=== PATIENT | male | born 1930 | race Caucasian/White ===

== ENCOUNTER 2017-06-15 16:56 | Emergency (ER) | payer MEDICARE, OTHER ==
[~2017-06-15] VITALS: Ht 172.7 cm; Wt 73.5 kg
[~2017-06-15 16:56] MED LIST: FERROUS SULFAT325 MG PO; FOLIC ACID1 MG; FUROSEMIDE20 MG; HUMALOG100 UNIT/1 SUB-Q; IMDUR30 MG PO; JANUVIA100 MG PO; LANTUS100 UNITS/ SUB-Q; LISINOPRIL-HCT1 EACH PO; MACULAR VITAMI1 EACH PO; MAGNESIUM OXID400 MG PO; MELOXICAM15 MG; METOPROLOL SUCC50 MG PO; OXYBUTYNIN CHLOR5 MG PO; POTASSIUM CHLO10 MEQ; PRADAXA150 MG; SYNTHROID137 MCG PO
[2017-06-15] MEDS ORDERED: ROSUVASTATIN CA10 MG PO (17:39)
[2017-06-15] MEDS ORDERED: KLOR-CON 1010 MEQ PO (17:40)
[2017-06-15] MEDS ORDERED: LASIX20 MG PO (17:43)
[2017-06-15] MEDS ORDERED: METOPROLOL TAR100 MG PO (17:43)
[2017-06-15] MEDS ORDERED: BREEZE 21 EACH MISC (17:46)
[2017-06-15] MEDS ORDERED: ELIQUIS2.5 MG PO (17:47)
[2017-06-15] MEDS ORDERED: NITROSTAT0.4 MG SL (17:48)
--- NOTE | 2017-06-15 21:57 | EKG ---
[facility] [address] [facility] [place] [address] Signed Atrial-paced rhythm with prolonged AV conduction Left axis deviation Left bundle branch block Abnormal ECG No previous ECGs available Confirmed by SEBAS LANTIGUA MD ([id number]) on 06/15/2017 9:57:48 PM Electronically Signed By: SEBAS LANTIGUA MD 06/15/17 [id number] PATIENT NAME: MARRY MERCADO Electrocardiogram DATE OF : [birth year] PHYSICIAN: SEBAS LANTIGUA MD REPORT #: [id number] REPORT IS CONFIDENTIAL AND NOT TO BE RELEASED WITHOUT AUTHORIZATION
== END 2017-06-15 18:35 | disposition home or self-care (01) ==
LOC: ED 16:56
DX: R07.9 Chest pain, unspecified (principal); I10 Essential (primary) hypertension; E11.9 Type 2 diabetes mellitus without complications; E03.9 Hypothyroidism, unspecified; Z87.891 Personal history of nicotine dependence; Z85.46 Personal history of malignant neoplasm of prostate; Z95.0 Presence of cardiac pacemaker; Z88.8 Allergy status to other drugs, medicaments and biological substances; Z79.899 Other long term (current) drug therapy; Z79.4 Long term (current) use of insulin
CPT/HCPCS: 71010; 80053; 84484; 85025; 85610; 93005; 93010; 99284

== ENCOUNTER 2018-04-29 10:25 | Emergency (ER) | payer MEDICARE, OTHER ==
[~2018-04-29] VITALS: Ht 172.7 cm; Wt 73.5 kg
--- OUTSIDE RECORDS SUMMARY | ~2018-04-29 | XMS | Encounter Summary ---
Demographics + + + | Address | [address] | | | [place] [address] | + + + | Home Phone | | + + + | Preferred Language | Unknown | + + + | Marital Status | | + + + | Amish Affiliation | 1041 | + + + | Race | Unknown | + + + | Ethnic Group | Unknown | + + + Author + + + | Author | [facility] | | | and [place] | + + + | Organization | [facility] | | | and [place] | + + + | Address | Unknown | + + + | Phone | Unavailable | + + + Support + + + + + | Name | Relationship | Address | Phone | + + + + + | Inga Reid | ECON | [address] | | | | | [place] | | | | | [address] | | + + + + + | Marisol Albarado | ECON | Unknown | | + + + + + Care Team Providers + +------+ + | Care [facility]ers[facility] Helper Name | Role | Phone | + +------+ + | Kadeem Talavera MD | PCP | | + +------+ + Reason for Visit + + + | Reason | Comments | + + + | Medication Refill | | + + + Encounter Details +--------+--------+ + + + | Date | Type | Department | Care Team | Description | +--------+--------+ + + + | 02/20/ | Refill | [facility] [place] | Sima Holder, | Medication Refill | | 2017 | | CARDIOLOGY [address] | [employer] [address] | | | | | [place], | [place], [place] | | | | | [place] [phone] | [address] | | | | | [phone] | | | +--------+--------+ + + + Social History + + + +--------+ + | Tobacco Use | Types | Packs/Day | Years | Date | | | | | Used | | + + + +--------+ + | Former Smoker | Cigarettes | 0.5 | 15 | Quit: 05/21/1967 | + + + +--------+ + + +---+---+---+ | Smokeless Tobacco: | | | | | Never Used | | | | + +---+---+---+ + + +---------+ + | Alcohol Use | Drinks/We | oz/Week | Comments | | | ek | | | + + +---------+ + | No | | | | + + +---------+ + + + + | Sex Assigned at | Date Recorded | | | | + + + | Not on file | | + + + as of this encounter Plan of Treatment +--------+---------+ + + + | Date | Type | Specialty | Care Team | Description | +--------+---------+ + + + | 04/11/ | Office | Cardiology | Sima Holder, | | | 2018 | Visit | | [address] | | | | | | [place] | | | | | | [id number] | | | | | | | | +--------+---------+ + + + as of this encounter Visit Diagnoses Not on filein this encounter"
--- OUTSIDE RECORDS SUMMARY | ~2018-04-29 | XMS | Encounter Summary ---
Demographics + + + | Address | [address] | | | [place] [address] | + + + | Home Phone | | + + + | Preferred Language | Unknown | + + + | Marital Status | | + + + | Latter-Day Affiliation | 1041 | + + + | Race | Unknown | + + + | Ethnic Group | Unknown | + + + Author + + + | Author | [facility] | | | and [place] | + + + | Organization | [facility] | | | and [place] | + + + | Address | Unknown | + + + | Phone | Unavailable | + + + Support + + + + + | Name | Relationship | Address | Phone | + + + + + | Inga Reid | ECON | [address] | | | | | [place] | | | | | [address] | | + + + + + | Marisol Albarado | ECON | Unknown | | + + + + + Care Team Providers + +------+ + | Care Home Planning Consultant Salesperson Name | Role | Phone | + +------+ + | Kadeem Talavera MD | PCP | | + +------+ + Reason for Referral Diagnostic/Screening (Routine) +--------+--------+ + + + + | Status | Reason | Specialty | Diagnoses / | Referred By | Referred To | | | | | Procedures | Contact | Contact | +--------+--------+ + + + + | Closed | | Radiology | Diagnoses | Hellberg, | [facility] | | | | | Sick sinus | Sima, INVESTIGATIVE WRITER | [address] | | | | | syndrome | [address] | [place], | | | | | (HCC) | [place] | [place] | | | | | Coronary | [place] | [address] | | | | | artery | [address] | Phone: | | | | | disease | Phone: | [phone] | | | | | involving | [phone] | Fax: | | | | | council | Fax: | [phone] | | | | | coronary | [phone] | | | | | | artery of | | | | | | | council heart | | | | | | | without | | | | | | | angina | | | | | | | pectoris | | | | | | | Paroxysmal | | | | | | | atrial | | | | | | | fibrillation | | | | | | | (HCC) | | | | | | | Hypertension | | | | | | | , essential | | | | | | | Chronic | | | | | | | diastolic | | | | | | | CHF | | | | | | | (congestive | | | | | | | heart | | | | | | | failure) | | | | | | | (HCC) | | | | | | | Dyslipidemia | | | | | | | Pacemaker | | | | | | | Pacemaker | | | | | | | reprogrammin | | | | | | | g/check | | | | | | | Mitral valve | | | | | | | | | | | | | | insufficienc | | | | | | | y, | | | | | | | unspecified | | | | | | | etiology | | | | | | | Procedures | | | | | | | ECHO | | | | | | | Complete CO | | | | | | | ECHO HEART | | | | | | | XTHORACIC,CO | | | | | | | MPLETE W | | | | | | | DOPPLER CO | | | | | | | ECHO HEART | | | | | | | XTHORACIC,CO | | | | | | | MPLETE, W/O | | | | | | | DOPPLER | | | +--------+--------+ + + + + Diagnostic/Screening (Routine) +--------+--------+ + + + + | Status | Reason | Specialty | Diagnoses / | Referred By | Referred To | | | | | Procedures | Contact | Contact | +--------+--------+ + + + + | Closed | | Radiology | Diagnoses | Hellberg, | [facility] | | | | | Sick sinus | Sima, INVESTIGATIVE WRITER | [address] | | | | | syndrome | [address] | [place], | | | | | ([facility]) | [place] | [place] | | | | | Coronary | [place], [place] | [address] | | | | | artery | [address] | Phone: | | | | | disease | Phone: | [phone] | | | | | involving | [phone] | Fax: | | | | | council | Fax: | [phone] | | | | | coronary | [phone] | | | | | | artery of | | | | | | | council heart | | | | | | | without | | | | | | | angina | | | | | | | pectoris | | | | | | | Paroxysmal | | | | | | | atrial | | | | | | | fibrillation | | | | | | | (HCC) | | | | | | | Hypertension | | | | | | | , essential | | | | | | | Chronic | | | | | | | diastolic | | | | | | | CHF | | | | | | | (congestive | | | | | | | heart | | | | | | | failure) | | | | | | | (HCC) | | | | | | | Dyslipidemia | | | | | | | Pacemaker | | | | | | | Pacemaker | | | | | | | reprogrammin | | | | | | | g/check | | | | | | | Mitral valve | | | | | | | | | | | | | | insufficienc | | | | | | | y, | | | | | | | unspecified | | | | | | | etiology | | | | | | | Procedures | | | | | | | ECHO | | | | | | | Complete CO | | | | | | | ECHO HEART | | | | | | | XTHORACIC,CO | | | | | | | MPLETE W | | | | | | | DOPPLER CO | | | | | | | ECHO HEART | | | | | | | XTHORACIC,CO | | | | | | | MPLETE, W/O | | | | | | | DOPPLER | | | +--------+--------+ + + + + Reason for Visit Diagnostic/Screening (Routine) +--------+--------+ + + + + | Status | Reason | Specialty | Diagnoses / | Referred By | Referred To | | | | | Procedures | Contact | Contact | +--------+--------+ + + + + | Closed | | Radiology | Diagnoses | [place]berg, | [facility] | | | | | Sick sinus | Sima, INVESTIGATIVE WRITER | [address] | | | | | syndrome | [address] | [place], | | | | | (HCC) | [place] | [place] | | | | | Coronary | [place] | [address] | | | | | artery | [address] | Phone: | | | | | disease | Phone: | [phone] | | | | | involving | [phone] | Fax: | | | | | council | Fax: | [phone] | | | | | coronary | [phone] | | | | | | artery of | | | | | | | council heart | | | | | | | without | | | | | | | angina | | | | | | | pectoris | | | | | | | Paroxysmal | | | | | | | atrial | | | | | | | fibrillation | | | | | | | (HCC) | | | | | | | Hypertension | | | | | | | , essential | | | | | | | Chronic | | | | | | | diastolic | | | | | | | CHF | | | | | | | (congestive | | | | | | | heart | | | | | | | failure) | | | | | | | (HCC) | | | | | | | Dyslipidemia | | | | | | | Pacemaker | | | | | | | Pacemaker | | | | | | | reprogrammin | | | | | | | g/check | | | | | | | Mitral valve | | | | | | | | | | | | | | insufficienc | | | | | | | y, | | | | | | | unspecified | | | | | | | etiology | | | | | | | Procedures | | | | | | | ECHO | | | | | | | Complete CO | | | | | | | ECHO HEART | | | | | | | XTHORACIC,CO | | | | | | | MPLETE W | | | | | | | DOPPLER CO | | | | | | | ECHO HEART | | | | | | | XTHORACIC,CO | | | | | | | MPLETE, W/O | | | | | | | DOPPLER | | | +--------+--------+ + + + + Encounter Details +--------+ + + + + | Date | Type | Department | Care Team | Description | +--------+ + + + + | 04/10/ | Hospital | [facility] | Sima Holder, | Sick sinus syndrome | | 2018 | Encounter | [facility] [address] | INVESTIGATIVE WRITER [address] | (HCC) with | | | | [address] [place] | [place] | symptomatic | | | | [place] [address] | [address] | bradycardia; | | | | [phone] | | Coronary artery | | | | | Adeline Hammond | disease involving | | | | | M, Technologist | council coronary | | | | | | artery of council | | | | | | heart without angina | | | | | | pectoris; | | | | | | Paroxysmal atrial | | | | | | fibrillation ([facility]); | | | | | | Hypertension, | | | | | | essential; Chronic | | | | | | diastolic CHF | | | | | | (congestive heart | | | | | | failure) ([facility]); | | | | | | Dyslipidemia; Dual | | | | | | Lead Medtronic | | | | | | Advisa MRI capable | | | | | | pacemaker 06/09/14 | | | | | | [place]; Pacemaker | | | | | | reprogramming/check | | | | | | DO NOT DELETE | +--------+ + + + + Social History + + [...] + + + as of this encounter Medications at Time of Discharge + + +--------+---------+ + + | Medication | Sig. | Disp. | Refills | Start | End Date | | | | | | Date | | + + +--------+---------+ + + | acetaminophen | Take 1-2 tablets by | | | 06/10/20 | | | (TYLENOL) 325 mg | mouth every 6 hours | | | 14 | | | tablet | as needed for Pain. | | | | | + + +--------+---------+ + + | JOYCE BREEZE 2 | | | 3 | 01/12/20 | | | TEST DISK | | | | 16 | | + + +--------+---------+ + + | Blood Glucose | by Does not apply | | | | | | Monitoring Suppl | route 3 times daily. | | | | | | (SELWYN NOE 2 | | | | | | | SYSTEM) | | | | | | + + +--------+---------+ + + | Cholecalciferol | Take 2,000 Units by | | | | | | (VITAMIN D3) 2000 | mouth Daily. | | | | | | UNITS CAPS | | | | | | + + +--------+---------+ + + | Cinnamon 500 MG | Take 1,000 mg by | | | | | | CAPS | mouth Daily. | | | | | + + +--------+---------+ + + | ELIQUIS 2.5 MG | Take one tablet by | 60 | 5 | 02/21/20 | | | tablet | mouth twice daily | tablet | | 18 | | + + +--------+---------+ + + | ferrous sulfate | Take 325 mg by mouth | | | | | | 325 mg tablet | daily (with | | | | | | | breakfast). | | | | | + + +--------+---------+ + + | folic acid 1 mg | Take 1 mg by mouth | | | | | | tablet | Daily. | | | | | + + +--------+---------+ + + | furosemide (LASIX) | Take 1 tablet by | | | 07/06/20 | | | 20 mg tablet | mouth Daily. | | | 17 | | + + +--------+---------+ + + | insulin glargine | Inject 30 Units | | | 06/03/20 | | | (LANTUS) 100 | under the skin | | | 14 | | | units/mL injection | Daily. Pharmacy | | | | | | | reported. | | | | | + + +--------+---------+ + + | insulin lispro | Per sliding scale | | 0 | 06/03/20 | | | (ANALILIA MCKEON) | per Dr. Moore: 3 | | | 14 | | | 100 units/mL | units before | | | | | | injection pen | breakfast and dinner | | | | | | | + sliding scale | | | | | | | with a maximum of 15 | | | | | | | units per day. | | | | | + + +--------+---------+ + + | isosorbide | Take 1 tablet by | 120 | 5 | 08/19/20 | | | dinitrate (ISORDIL) | mouth Daily as | tablet | | 16 | | | 30 MG tablet | needed. For SBP > | | | | | | | 200 mmHg | | | | | + + +--------+---------+ + + | levothyroxine | Take 125 mcg by | | 3 | 09/28/19 | | | (SYNTHROID, | mouth Daily. | | | 16 | | | LEVOTHROID) 125 mcg | | | | | | | tablet | | | | | | + + +--------+---------+ + + | | Take two tablets by | 180 | 1 | 01/04/20 | | | lisinopril-hydrochlo | mouth every day | tablet | | 18 | | | rothiazide | | | | | | | (PRINZIDE,ZESTORETIC | | | | | | | ) 20-12.5 MG per | | | | | | | tablet | | | | | | + + +--------+---------+ + + | magnesium oxide | Take 400 mg by mouth | | | | | | (MAG-OX) 400 mg | 2 times daily. | | | | | | tablet | | | | | | + + +--------+---------+ + + | metoprolol | TAKE ONE TABLET BY | 180 | 2 | 12/06/19 | | | tartrate (LOPRESSOR) | MOUTH TWICE DAILY | tablet | | 18 | | | 100 mg tablet | | | | | | + + +--------+---------+ + + | Multiple | Take by mouth | | | | | | Vitamins-Minerals | Daily. | | | | | | ([facility] | | | | | | | PO) | | | | | | + + +--------+---------+ + + | nitroglycerin | Place 0.4 mg under | | | | | | (NITROSTAT) 0.3 mg | the tongue every 5 | | | | | | SL tablet | minutes as needed. | | | | | + + +--------+---------+ + + | NOVOLOG FLEXPEN | Sliding scale | | | 02/27/20 | | | 100 UNIT/ML | | | | 18 | | | injection pen | | | | | | + + +--------+---------+ + + | [place]-3 Fatty | Take by mouth | | | | | | Acids (PRO NUTRIENTS | Daily. | | | | | | OMEGA 3) 332.5 MG | | | | | | | CPDR | | | | | | + + +--------+---------+ + + | oxybutynin | Take 5 mg by mouth 2 | | | | | | (DITROPAN XL) 5 mg | times daily. | | | | | | 24 hr tablet | | | | | | + + +--------+---------+ + + | potassium chloride | Take 1 tablet by | | | 07/06/20 | | | (ANTWANOR-CON) 10 mEq | mouth Daily. | | | 17 | | | CR tablet | | | | | | + + +--------+---------+ + + | PROAIR HFA 108 (90 | Take 2 puffs by | | | 07/09/20 | | | BASE) MCG/ACT | mouth as needed. | | | 14 | | | inhaler | | | | | | + + +--------+---------+ + + | sitagliptin | Take 50 mg by mouth | | | | | | (JANUVIA) 50 MG | Daily. | | | | | | tablet | | | | | | + + +--------+---------+ + + | triamcinolone | Apply as directed | | | 07/28/20 | | | (KENALOG) 0.1% cream | | | | 14 | | + + +--------+---------+ + + as of this encounter Plan of Treatment +--------+---------+ + + + | Date | Type | Specialty | Care Team | Description | +--------+---------+ + + + | 04/11/ | Office | Cardiology | Sima Holder, | | | 2018 | Visit | | [address] | | | | | | [place], [place] | | | | | | [address] | | | | | | | | +--------+---------+ + + + as of this encounter Procedures + +--------+ + + + | Procedure Name | Priori | Date/Time | Associated Diagnosis | Comments | | | ty | | | | + +--------+ + + + | ECHO COMPLETE | Routin | 04/10/2018 | Sick sinus | Results for this | | | e | 1417 PDT | syndrome (HCC) with | procedure are in the | | | | | symptomatic | results section. | | | | | bradycardia | | | | | | Coronary artery | | | | | | disease involving | | | | | | council coronary | | | | | | artery of council | | | | | | heart without angina | | | | | | pectoris | | | | | | Paroxysmal atrial | | | | | | fibrillation (HCC) | | | | | | Hypertension, | | | | | | essential Chronic | | | | | | diastolic CHF | | | | | | (congestive heart | | | | | | failure) (HCC) | | | | | | Dyslipidemia Dual | | | | | | Lead Medtronic | | | | | | Advisa MRI capable | | | | | | pacemaker 06/09/14 | | | | | | [place] Pacemaker | | | | | | reprogramming/check | | | | | | DO NOT DELETE | | | | | | Mitral valve | | | | | | insufficiency, | | | | | | unspecified etiology | | + +--------+ + + + in this encounter Results ECHO Complete (04/10/2018 1417) + +-------+ + + | Component | Value | Ref Range | Performed At | + +-------+ + + | LVEF-TTE | 60 | | [facility] | | TRANSTHORACIC ECHO | | | | + +-------+ + + + + ----+ | Narrative | Performed At | + + ----+ | Transthoracic | [facility] | | Echocardiography Report (TTE) Demographics Patient Name ROGELIO | | | MARRY Room Number ANAM Patient | | | Number [id number] Date of Study | | | 04/10/2018 Visit Number [id number] | | | Referring Physician | | | ANNETTE CALVERT Number Date of | | | 1930 Embossing Clerk MARY | | | BLANCA HOLGUIN Age 87 | | | year(s) Interpreting MAKENNA | | | G[place] | | | Careers Adviser Gender | | | Male Nurse | | | St | | | ress Dining Room Tables Set Up Attendant Procedure Type of Study TTE procedure: ECHO Complete. | | | Procedure dateDate: 04/10/2018Start: 01:15 PM Technical Quality: | | | Adequate visualizationStudy Location: Echo LabIndications: Mitral | | | Insufficiency 424.0/I34.0.Patient Status: RoutineHeight: 69 | | | inchesWeight: 167 poundsBSA: 1.91 m^2BMI: 24.66 kg/m^2Rhythm: Atrial | | | fibrillationHR: 62 bpm ConclusionsSummary1. Mild left atrial | | | dilatation.2. Normal left ventricular size with a moderate to severe | | | concentric leftventricular hypertrophy. Left ventricular systolic | | | function is preserved.LVEF is 60-65%.3. Mildly thickened and calcified | | | mitral valve with a trace mitral valveregurgitation.4. | | | Qxhy-ws-kwtzbbus mitral annular calcification.5. Mildly thickened and | | | calcified trileaflet aortic valve with adequateopening. There is | | | aortic valve sclerosis without significant aortic valvestenosis. There | | | is a trace aortic valve insufficiency.6. Mild tricuspid valve | | | regurgitation.7. Mild pulmonary hypertension with a peak systolic | | | pressure of 45-50 mmHg.8. Pacemaker lead in right ventricle.9. Dilated | | | IVC with a normal collapse suggesting mild fluid retention.10. When | | | compared to echocardiography on 02/19/15, concentric left | | | ventricularhypertrophy seems worsen. | | | Signature | | | | | | PM | | | -------- FindingsMitral ValveThickening and calcification of the | | | mitral valve leaflets.Mild mitral regurgitation.Mild mitral annular | | | calcification is present.Aortic ValveAortic valve appears | | | trileaflet.Diffuse thickening (sclerosis) of the aortic valve cusps | | | without reducedexcursion.Tricuspid ValveMild tricuspid regurgitation | | | suggestive of a mildly elevated right systolicpressure of 45-50 | | | mmHg.Pulmonic ValveNormal pulmonic valve structure and function. | | | Normal pulmonary valve andRVOT flow by color and Doppler flow | | | imaging.Left AtriumThe left atrium is mildly dilated.Left | | | VentricleNormal left ventricular cavity size.Moderate concentric left | | | ventricular hypertrophy.Ejection fraction is visually estimated at | | | 60-65%.Right AtriumNormal right atrial size.Right VentricleNormal | | | right ventricular size.Right ventricle global systolic function is | | | normal.TAPSE = 1.7 cm.Pacer Wire visualized in right | | | ventricle.Pericardial EffusionNo evidence of pericardial | | | effusion.Pleural EffusionNo evidence of pleural | | | effusion.MiscellaneousDilated IVC with normal collapse.Aortic root | | | dimension within normal limits. Valves Mitral Valve Peak E-Wave: | | | 0.86 m/s Peak A-Wave: 0.22 m/s Tissue Doppler Septal e' Velocity: | | | 0.04 m/s Septal E/e' Ratio:20.14 Aortic Valve Peak Velocity: 0.81 | | | m/s Area (continuity): 3.41 cm^2 Peak Gradient: | | | 2.61 mmHg Mean Gradient: 1.32 mmHg AI P1/2t: | | | 577.95 msec Tricuspid Valve TR Velocity: 2.91 m/s LVOT Peak | | | Velocity: 0.74 m/s LVOT Diameter: 2.15 cm Structures Left Atrium LA | | | A/P Dimension: 4.53 cm LA Volume: | | | 86.74 ml LA Vol/BSA Index: 45 mL/m^2 Left Ventricle Diastolic | | | Dimension: 2.85 cm Systolic Dimension: 2.1 cm Septum | | | Diastolic: 2.08 cm PW Diastolic: 1.53 cm EF Ygxowpkps23% EF | | | Calculated: 56.46% Miscellaneous Aorta Aortic Root: 3.81 cm | | | Ascending Aorta: 4.15 cm | | |Mild mitral annular calcification is present. | | |Aortic Valve | | |Aortic valve appears trileaflet. | | |Diffuse thickening (sclerosis) of the aortic valve cusps without reduced | | |excursion. | | |Tricuspid Valve | | |Mild tricuspid regurgitation suggestive of a mildly elevated right systolic | | |pressure of 45-50 mmHg. | | |Pulmonic Valve | | |Normal pulmonic valve structure and function. Normal pulmonary valve and | | |RVOT flow by color and Doppler flow imaging. | | |Left Atrium | | |The left atrium is mildly dilated. | | |Left Ventricle | | |Normal left ventricular cavity size. | | |Moderate concentric left ventricular hypertrophy. | | |Ejection fraction is visually estimated at 60-65%. | | |Right Atrium | | |Normal right atrial size. | | |Right Ventricle | | |Normal right ventricular size. | | |Right ventricle global systolic function is normal. | | |TAPSE = 1.7 cm. | | |Pacer Wire visualized in right ventricle. | | |Pericardial Effusion | | |No evidence of pericardial effusion. | | |Pleural Effusion | | |No evidence of pleural effusion. | | |Miscellaneous | | |Dilated IVC with normal collapse. | | |Aortic root dimension within normal limits. | | | | | |Valves | | | | | | Mitral Valve | | | | | | Peak E-Wave: 0.86 m/s | | | Peak A-Wave: 0.22 m/s | | | | | | Tissue Doppler | | | | | | Septal e' Velocity: 0.04 m/s | | | Septal E/e' Ratio:20.14 | | | | | | Aortic Valve | | | | | | Peak Velocity: 0.81 m/s Area (continuity): 3.41 cm^2 | | | Peak Gradient: 2.61 mmHg Mean Gradient: 1.32 mmHg | | | AI P1/2t: 577.95 msec | | | | | | Tricuspid Valve | | | | | | TR Velocity: 2.91 m/s | | | | | | LVOT | | | | | | Peak Velocity: 0.74 m/s | | | LVOT Diameter: 2.15 cm | | | | | |Structures | | | | | | Left Atrium | | | | | | LA A/P Dimension: 4.53 cm LA Volume: 86.74 ml | | | LA Vol/BSA Index: 45 mL/m^2 | | | | | | Left Ventricle | | | | | | Diastolic Dimension: 2.85 cm Systolic Dimension: 2.1 cm | | | Septum Diastolic: 2.08 cm | | | PW Diastolic: 1.53 cm | | | EF Coefhpzeo65% | | | EF Calculated: 56.46% | | | | | | Miscellaneous | | | | | | Aorta | | | | | | Aortic Root: 3.81 cm | | | Ascending Aorta: 4.15 cm | | | | | + + ----+ + + | Procedure Note | + + | Jose, Rad Results In - 04/10/2018 1507 PDT Transthoracic Echocardiography Report (TTE) | | | | Demographics | | | | Patient Name ROGELIO TUTTLE Room Number | | ANAM | | | | Patient Number [id number] Date of Study 04/10/2018 | | | | Visit Number [id number] | | | | Referring Physician ANNETTE CALVERT | | Number | | | | Date of 1930 Embossing Clerk MARY HOLGUIN | | | | Age 87 year(s) Interpreting MAKENNA THOMPSON, | | Careers Adviser | | | | Gender Male Nurse | | | | Stress Dining Room Tables Set Up Attendant | | | | Procedure | | | | Type of Study | | | | TTE procedure: ECHO Complete. | | | | Procedure date | | Date: 04/10/2018Start: 01:15 PM | | | | Technical Quality: Adequate visualizationStudy Location: Echo Lab | | Indications: Mitral Insufficiency 424.0/I34.0. | | Patient Status: Routine | | Height: 69 inchesWeight: 167 poundsBSA: 1.91 m^2BMI: 24.66 kg/m^2 | | Rhythm: Atrial fibrillationHR: 62 bpm | | | | Conclusions | | Summary | | 1. Mild left atrial dilatation. | | 2. Normal left ventricular size with a moderate to severe concentric left | | ventricular hypertrophy. Left ventricular systolic function is preserved. | | LVEF is 60-65%. | | 3. Mildly thickened and calcified mitral valve with a trace mitral valve | | regurgitation. | | 4. Ifve-ec-srncrtrg mitral annular calcification. | | 5. Mildly thickened and calcified trileaflet aortic valve with adequate | | opening. There is aortic valve sclerosis without significant aortic valve | | stenosis. There is a trace aortic valve insufficiency. | | 6. Mild tricuspid valve regurgitation. | | 7. Mild pulmonary hypertension with a peak systolic pressure of 45-50 mmHg. | | 8. Pacemaker lead in right ventricle. | | 9. Dilated IVC with a normal collapse suggesting mild fluid retention. | | 10. When compared to echocardiography on 02/19/15, concentric left ventricular | | hypertrophy seems worsen. | | | | Signature | | | | Electronically signed by MAKENNA THOMPSON MD(Interpreting physician) on | | 04/10/2018 03:07 PM | | | | | | Findings | | Mitral Valve | | Thickening and calcification of the mitral valve leaflets. | | Mild mitral regurgitation. | | Mild mitral annular calcification is present. | | Aortic Valve | | Aortic valve appears trileaflet. | | Diffuse thickening (sclerosis) of the aortic valve cusps without reduced | | excursion. | | Tricuspid Valve | | Mild tricuspid regurgitation suggestive of a mildly elevated right systolic | | pressure of 45-50 mmHg. | | Pulmonic Valve | | Normal pulmonic valve structure and function. Normal pulmonary valve and | | RVOT flow by color and Doppler flow imaging. | | Left Atrium | | The left atrium is mildly dilated. | | Left Ventricle | | Normal left ventricular cavity size. | | Moderate concentric left ventricular hypertrophy. | | Ejection fraction is visually estimated at 60-65%. | | Right Atrium | | Normal right atrial size. | | Right Ventricle | | Normal right ventricular size. | | Right ventricle global systolic function is normal. | | TAPSE = 1.7 cm. | | Pacer Wire visualized in right ventricle. | | Pericardial Effusion | | No evidence of pericardial effusion. | | Pleural Effusion | | No evidence of pleural effusion. | | Miscellaneous | | Dilated IVC with normal collapse. | | Aortic root dimension within normal limits. | | | | Valves | | | | Mitral Valve | | | | Peak E-Wave: 0.86 m/s | | Peak A-Wave: 0.22 m/s | | | | Tissue Doppler | | | | Septal e' Velocity: 0.04 m/s | | Septal E/e' Ratio:20.14 | | | | Aortic Valve | | | | Peak Velocity: 0.81 m/s Area (continuity): 3.41 cm^2 | | Peak Gradient: 2.61 mmHg Mean Gradient: 1.32 mmHg | | AI P1/2t: 577.95 msec | | | | Tricuspid Valve | | | | TR Velocity: 2.91 m/s | | | | LVOT | | | | Peak Velocity: 0.74 m/s | | LVOT Diameter: 2.15 cm | | | | Structures | | | | Left Atrium | | | | LA A/P Dimension: 4.53 cm LA Volume: 86.74 ml | | LA Vol/BSA Index: 45 mL/m^2 | | | | Left Ventricle | | | | Diastolic Dimension: 2.85 cm Systolic Dimension: 2.1 cm | | Septum Diastolic: 2.08 cm | | PW Diastolic: 1.53 cm | | EF Hcxomzcor26% | | EF Calculated: 56.46% | | | | Miscellaneous | | | | Aorta | | | | Aortic Root: 3.81 cm | | Ascending Aorta: 4.15 cm | + + + +---------+ + + | Performing | Address | City/State/Zipcode | Phone Number | | Organization | | | | + +---------+ + + | [facility] | | | | + +---------+ + + in this encounter Visit Diagnoses + + | Diagnosis | + + | Sick sinus syndrome (HCC) with symptomatic bradycardia | + + | Sinoatrial node dysfunction | + + | 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
--- OUTSIDE RECORDS SUMMARY | ~2018-04-29 | XMS | Encounter Summary ---
Demographics + + + | Address | [address] | | | [place] [address] | + + + | Home Phone | | + + + | Preferred Language | Unknown | + + + | Marital Status | | + + + | Baptism Affiliation | [id number] | + + + | Race | Unknown | + + + | Ethnic Group | Unknown | + + + Author + + + | Author | [facility] | | | and [place] | + + + | Organization | [facility] | | | and [place] | [...] | [place] | | | | | [id number] | | + + + + + | Marisol Albarado | ECON | Unknown | | + + + + + Care Team Providers + +------+ + | Care Plate Conditioner Name | Role | Phone | + +------+ + | Kadeem Talavera MD | PCP | | + +------+ + Reason for Visit + + + | Reason | Comments | + + + | Follow-up | | + + + | Atrial Fibrillation | | + + + | Bradycardia | | + + + | Hyperlipidemia | | + + + | Hypertension | | + + + | Congestive Heart | | | Failure | | + + + | Device Check | | | (In-office) | | + + + Encounter Details +--------+---------+ + + + | Date | Type | Department | Care Team | Description | +--------+---------+ + + + | 04/10/ | Office | [facility] | Sima Holder, | Sick sinus syndrome | | 2018 | Visit | CARDIOLOGY [address] | RN RELIEF CHARGE [address] | ([facility]) with | | | | [address] [place], | [place], [place] | symptomatic | | | | [place] [address] | [id number] | bradycardia (Primary | | | | [phone] | | Dx); Coronary | | | | | | artery disease | | | | | | involving prairie band | | | | | | coronary artery of | | | | | | prairie band heart without | | | | | | angina pectoris; | | | | | | Paroxysmal atrial | | | | | | fibrillation (HCC); | | | | | | Chronic diastolic | | | | | | CHF (congestive | | | | | | heart failure) | | | | | | (HCC); Hypertension, | | | | | | essential; | | | | | | Dyslipidemia; Dual | | | | | | Lead Medtronic | | | | | | Advisa MRI capable | | | | | | pacemaker 06/09/14 | | | | | | [place]; Pacemaker | | | | | | reprogramming/check | | | | | | DO NOT DELETE | +--------+---------+ + + + Social History + + [...] + + + as of this encounter Last Filed Vital Signs + + + + | Vital Sign | Reading | Time Taken | + + + + | Blood Pressure | 130/80 | 04/10/20181451 PDT | + + + + | Pulse | 66 | 04/10/20181451 PDT | + + + + | Temperature | - | - | + + + + | Respiratory Rate | 12 | 04/10/20181451 PDT | + + + + | Oxygen Saturation | - | - | + + + + | Inhaled Oxygen | - | - | | Concentration | | | + + + + | Weight | 76.2 kg (167 lb 15.9 | 04/10/2018 1452 PDT | | | oz) | | + + + + | Height | 172.7 cm (5' 8") | 04/10/2018 1452 PDT | + + + + | Body Mass Index | 25.54 | 04/10/2018 1452 PDT | + + + + in this encounter Instructions Patient Instructions - Sima Holder ARNP - 04/10/2018 1500 PDT 1. You might try switching your magnesium oxide over to magnesium citrate as this is more h elpful with constipation, also it absorbs better. 2. Take the lab slips to go have your blood drawn in May, be fasting for 9 to 12 hour s, with nothing to eat or drink except water and your medications. 3. Continue your CareLink checks every 3 months. 4. Return in 1 year for office visit and device interrogation, or sooner with concerns.in t his encounter Progress Notes Sima Holder ARNP - 04/10/2018 1500 PDTFormatting of this note may be different from the original. PATIENT NAME: Jourdan Reid : 1930: AGE: 87 y.o. PRIMARY CARE: Kadeem Talavera MD CC: OUTPATIENT FOLLOW UP VISIT Date of Service: 04/10/2018 HISTORY OF PRESENT ILLNESS: Jourdan Reid is a 87 y.o. male with a history of non critical coronary artery diseas e, permanent atrial fibrillation, symptomatic bradycardia status post Medtronic dual-chamber permanent pacemaker implantation 06/09/14, hypothyroidism, hypertension obstructive sleep ap michael, not tolerate CPAP mask. He is being seen today for follow up and device interrogation. He was last seen 07/06/17 at which time he had no changes in his medical regimen. Since th at time, he reports he has been feeling pretty well. He has had a fair energy level. He tri es to stay active. 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 He will still drive around and check the yard for clover and let the [employer] company know i f things need to be sprayed. He has not had any chest pain or discomfort at rest or with ex ertion. He has had shortness of breath with Laying down flat first thing at night for just a minute or 2 and then it will resolve and his breathing will return to normal. He never w akes up feeling like he has to sit up in the middle the night. Have any shortness of breath with exertion during the day doing any of his activities.l He has not had any lightheadedn ess or dizziness. He has not noticed palpitations. He has not had leg swelling. He sleeps on 2 pillows at night, which is his norm, and does not wake up at night feeling short of br eath. He sleeps with oxygen in place nightly with 2 liters per minute by nasal cannula. MEDICAL, SURGICAL, AND PERSONAL HISTORY Past Medical, Surgical, Family, and Social History are reviewed in EPIC. CURRENT PROBLEMS Patient Active Problem List Diagnosis Paroxysmal atrial fibrillation Sick sinus syndrome with symptomatic bradycardia Fatigue Diabetes Cancer SOB (shortness of breath) LBBB (left bundle branch block) Chest pain Hypertension, essential Dual Lead Medtronic Advisa MRI capable pacemaker 06/09/14 [place] Coronary artery disease involving prairie band coronary artery of prairie band heart without angina pectoris Pacemaker reprogramming/check DO NOT DELETE Dyslipidemia Chronic diastolic CHF (congestive heart failure) CURRENT MEDICATIONS Current Outpatient Prescriptions Medication Sig Dispense Refill acetaminophen (TYLENOL) 325 mg tablet Take 1-2 tablets by mouth every 6 hours as needed for Pain. JOYCE BREEZE 2 TEST DISK 3 Blood Glucose Monitoring Suppl (EcometricaEZE 2 SYSTEM) by Does not apply route 3 karen es daily. Cholecalciferol (VITAMIN D3) 2000 UNITS CAPS Take 2,000 Units by mouth Daily. Cinnamon 500 MG CAPS Take 1,000 mg by mouth Daily. ELIQUIS 2.5 MG tablet Take one tablet by mouth twice daily 60 tablet 5 ferrous sulfate 325 mg tablet Take 325 mg by mouth daily (with breakfast). folic acid 1 mg tablet Take 1 mg by mouth Daily. furosemide (LASIX) 20 mg tablet Take 1 tablet by mouth Daily. insulin glargine (LANTUS) 100 units/mL injection Inject 30 Units under the skin Daily. Pharmacy reported. insulin lispro (HUMALOG KWIKPEN) 100 units/mL injection pen Per sliding scale per Dr. Ogden unlap: 3 units before breakfast and dinner + sliding scale with a maximum of 15 units per da y. 0 isosorbide dinitrate (ISORDIL) 30 MG tablet Take 1 tablet by mouth Daily as needed. For SBP > 200 mmHg 120 tablet 5 levothyroxine (SYNTHROID, LEVOTHROID) 125 mcg tablet Take 125 mcg by mouth Daily. 3 lisinopril-hydrochlorothiazide (PRINZIDE,ZESTORETIC) 20-12.5 MG per tablet Take two tab lets by mouth every day 180 tablet 1 magnesium oxide (MAG-OX) 400 mg tablet Take 400 mg by mouth 2 times daily. metoprolol tartrate (LOPRESSOR) 100 mg tablet TAKE ONE TABLET BY MOUTH TWICE DAILY 180 tablet 2 Multiple Vitamins-Minerals ([facility] PO) Take by mouth Daily. nitroglycerin (NITROSTAT) 0.[address] 0.4 mg under the tongue every 5 minute s as needed. [place]-3 Fatty Acids (PRO NUTRIENTS OMEGA 3) 332.5 MG CPDR Take by mouth Daily. oxybutynin (DITROPAN XL) 5 mg 24 hr tablet Take 5 mg by mouth 2 times daily. potassium chloride (KLOR-CON) 10 mEq CR tablet Take 1 tablet by mouth Daily. PROAIR HFA 108 (90 BASE) MCG/ACT inhaler Take 2 puffs by mouth as needed. rosuvastatin (CRESTOR) 10 mg tablet Take 1 tablet by mouth nightly. 30 tablet 5 sitagliptin (JANUVIA) 50 MG tablet Take 50 mg by mouth Daily. triamcinolone (KENALOG) 0.1% cream Apply as directed No current facility-administered medications for this visit. ALLERGIES Allergies Allergen Reactions Cephalosporins Other (See Comments) Patient doesn't recall Prednisone Other (See Comments) Patient doesn't recall Ranitidine Hcl Other (See Comments) Patient doesn't recall Sulfamethoxazole W/Trimethoprim (Co-Trimoxazole) Other (See Comments) Patient doesn't recall ROS Review of Systems Constitutional: Positive for malaise/fatigue. Respiratory: Positive for shortness of breath (when he first lays down at night, lasting a few minutes). Cardiovascular: Negative for chest pain, palpitations, orthopnea (oxygen worn at night on 2 liters. He uses 2 pillows for both comfort and shortness of breath), claudication and leg s welling. Neurological: Negative for dizziness and weakness. OBJECTIVE: PHYSICAL EXAM BP 130/80 | Pulse 66 Comment: regular | Resp 12 | Ht 1.727 m (5' 8") | Wt 76.2 kg (167 l b 15.9 oz) | BMI 25.54 kg/m Physical Exam Constitutional: He is oriented to person, place, and time. He appears well-developed and we ll-nourished. No distress. Elderly, male individual without acute distress, accompanied by Neck: Normal carotid pulses and no JVD present. Carotid bruit is not present. Cardiovascular: Normal rate, regular rhythm, S1 normal, S2 normal and intact distal pulses. PMI is not displaced. Exam reveals no gallop, no S3, no S4 and no friction rub. Murmur heard. Holosystolic murmur is present with a grade of 1/6 Pulses: Carotid pulses are 2+ on the right side, and 2+ on the left side. Posterior tibial pulses are 1+ on the right side, and 1+ on the left side. Pulmonary/Chest: Effort normal. No accessory muscle usage. No respiratory distress. He has decreased breath sounds. He has no wheezes. He has no rhonchi. He has no rales. Abdominal: Normal appearance, normal aorta and bowel sounds are normal. He exhibits no abdo flakito bruit. There is no hepatosplenomegaly. There is no tenderness. Musculoskeletal: He exhibits no edema. Neurological: He is alert and oriented to person, place, and time. Gait (does not use phillip tive devices) abnormal. Skin: Skin is warm, dry and intact. Psychiatric: He has a normal mood and affect. His mood appears not anxious. Cognition and m elizabteh are impaired. He does not exhibit a depressed mood. ECG: I personally independently reviewed ECG tracing during this visit (interpreted and geovanna led by another provider): Results for orders placed or performed in visit on 07/06/17 ECG 12 lead Result Value Ref Range INTERPRETATION TEXT dual-chamber pacing device, AV sequential pacing rhythm Left axis deviation Left bundle branch block Abnormal ECG When compared with ECG of 23-JUN-2016 13:03, Electronic atrial pacemaker has replaced Electronic ventricular pacemaker Confirmed by ANDREW THOMPSON MDTYSON ([id number]) on 07/07/2017 4:44:58 PM Which is compared to today's ECG 04/10/2018: Atrial fibrillation with RV paced response wi th a rate of 63 beats per minute. LAB RESULTS reviewed during visit today primarily from [facility]: LIPID Lab Results Component Value Date CHOLHDL 3.0 06/28/2016 LDLEX 76 06/29/2017 HDLEX 41.6 06/29/2017 TRIGEX 85 06/29/2017 CHOLEX 135 06/29/2017 CHEMISTRY Lab Results Component Value Date GLU 102 06/11/2015 GLUEX 203 (A) 06/15/2017 NA 142 06/11/2015 NAEX 138 06/15/2017 K 3.4 (L) 06/11/2015 KEX 3.5 (A) 06/15/2017 CL 105 06/11/2015 CLEX 99 06/15/2017 CO2 29 06/11/2015 CO2EX 31 06/15/2017 CALCIUM 9.1 06/11/2015 ALKPHOS 49 06/11/2015 AST 22 06/11/2015 ASTEX 18 06/15/2017 ALT 18 06/11/2015 ALTEX 18 06/15/2017 BILITOT 0.7 06/11/2015 CREA 1.09 06/11/2015 BUN 17 06/11/2015 EGFREX 45 06/15/2017 CREEX 1.47 (A) 06/15/2017 HEMATOLOGY Lab Results Component Value Date WBC 5.3 06/11/2015 WBCEX 7.0 06/15/2017 HGB 13.8 06/11/2015 HGBEX 14.9 06/15/2017 HCT 41.4 06/11/2015 HCTEX 43.3 06/15/2017 PLT 153 06/11/2015 PLTEX 215 06/15/2017 Lab Results Component Value Date TSHEX 2.06 06/28/2016 BNPEX 306 (A) 02/18/2015 I reviewed records from PCP for office visit on 02/01/18 regarding multiple medical problems including CAD and atrial fibrillation and hypertension at which time His medications were c ontinued including metoprolol, lisinopril/hydrochlorothiazide and Eliquis. IMAGING- I reviewed reports from [facility]: Echocardiogram 04/10/18 showing Mild left atrial dilatation. Normal left ventricular size w ith a moderate to severe concentric left ventricular hypertrophy. Left ventricular systolic function is preserved. LVEF is 60-65%. Mildly thickened and calcified mitral valve with a tr raul mitral valve regurgitation, auxa-[id number] mitral annular calcification, mildly thicke nancy and calcified trileaflet aortic valve with adequate opening. 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 There is a trace aortic valve insufficiency, mild tricuspid valve regurgitation, mild pulmonary hypertension with a peak systolic pressu re of 45-50 mmHg. Pacemaker lead in right ventricle. Dilated IVC with a normal collapse sugg esting mild fluid retention. When compared to echocardiography on 02/19/15, concentric left ve ntricular hypertrophy seems worsen. DEVICE INTERROGATION Device interrogation is ordered and performed during this visit. Refer to scanned P[employer]art documentation and device PDF in [employer] for interrogation (with programming changes) performed during visit today. Events: 2 AT/AF episodes accounting for 64%. Current episode on going since 11/05/17 showing atrial flutter with paced ventricular response. Heart rate histogram shows good distribution. Atrial pacing 35.6 %, Ventricular pacing 68.3 %. There is a normal and stable device function. Estimated remaining battery longevity is 3.5 years. Current underlying rhythm: atrial flutter with ventricular rate 36 beats per minute Above data and testing is reviewed this visit; testing below is historical data unless othe rwise specified. ASSESSMENT: 1. Paroxysmal atrial fibrillation/atrial flutter: A. He was last seen by Dr. Crawford, a laborer cook house in [facility] for approximately a year and a half to treat his atrial fibrillation. He was put on th e Dabigatran to minimize the risk of stroke. B. Regadenoson SPECT MPI of 05/07/13 showed small fixed defect of an teroseptal wall. C. Echocardiogram on 05/13/[address] Crawford showed normal left ventr icular size, severe concentric left ventricular hypertrophy, LVEF 54%, mid interventricular septum hypokinesis, suspecting elevated left atrial pressure, normal right-sided pressure. D. He had a GI bleed 08/2014 with hemoglobin 9.1 at which point h is meloxicam and Pradaxa were stopped. He has a referral to see cable mechanic for col onoscopy but is not yet scheduled. E. Echocardiogram 02/19/15 Top normal left atrial size. Normal left ventricular size with mild concentric left ventricular hypertrophy. Left ventricular systol ic and is low normal. LVEF is 50-55%. Mildly thickened and calcified trileaflet aortic sj ve with adequate opening. There is a mild aortic valve insufficiency. Mildly thickened and calcified mitral valve with a trace mitral valve regurgitation. Mild mitral annular calci fication, mild tricuspid valve regurgitation, mild pulmonary hypertension with a peak systol ic pressure of 45-50 mmHg. Normal IVC with less than 50% respiratory collapse. F.His risks for stroke include: Hx of HTN (1), Age >/= 75 y.o.(2) and Vascular disease (1). His [id number] score is 4, which gives an estimated 4.0% risk o f stroke per year in atrial fibrillation. His bleeding risks include: bleeding history/anem ia (1) and >64 YO (1) . His HASBLED score is 2-3, which confers an intermediate risk (4.1-5 .8%) risk of bleed per year. He is on Eliquis to minimize risk of stroke. Today, 04/10/2018, he is in atrial fibrillation 64% of the time with ongoing episode since 10/2017. He is completely unaware of his atrial fibrillation, and his rate is well controlled on metoprolol. 2. Non critical coronary artery disease: A. Persantine nuclear medicine stress test 09/26/13 Persantine EK G is non diagnostic due to the abnormal underlying EKG. Abnormal Persantine Sestamibi myocar dial perfusion study with a medium-sized, reversible defect of a moderate severity in the pr oximal inferior, mid inferior, distal inferior and apex. This suggests a medium-sized myocar dial ischemia of a right coronary territories.Normal left ventricular size and wall thicknes s. Preserved left ventricular systolic function. LVEF by gated SPECT 57 %. B. Left heart catheterization 10/02/14 shows mild to moderate gerardo nary artery disease with mild diffuse disease of LAD, mild diffuse disease of left circumfle x, moderate diffuse plaquing at the proximal and midportion of the RCA, normal left ventricu lar systolic function with LVEF 60%. Risk factor modification recommended. C. Echocardiogram 04/10/18 showing Mild left atrial dilatation. N ormal left ventricular size with a moderate to severe concentric left ventricular hypertroph y. Left ventricular systolic function is preserved. LVEF is 60-65%. Mildly thickened and derrick cified mitral valve with a trace mitral valve regurgitation, fihd-ut-njfubale mitral annular calcification, mildly thickened and calcified trileaflet aortic valve with adequate opening . There is aortic valve sclerosis without significant aortic valve stenosis. There is a trac e aortic valve insufficiency, mild tricuspid valve regurgitation, mild pulmonary hypertensio n with a peak systolic pressure of 45-50 mmHg. Pacemaker lead in right ventricle. Dilated IV C with a normal collapse suggesting mild fluid retention. When compared to echocardiography on 02/19/15, concentric left ventricular hypertrophy seems worsen. D. Today, 04/10/2018, he denies chest pain. 3. Tachycardia/bradycardia syndrome: A. Holter monitor from 06/01 from [facility] in [place], [place] shows significant bradycardia, according to the patient's. Hard copy is not av ailable.. B. Status post Medtronic Advisa (MRI friendly) dual-chamber permane nt pacemaker placed by Dr. Siddiqi on 06/09/2014. C.He has quarterly CareLink remote monitoring. Today, 04/10/2018, his device interrogation shows normal and stable device function. 4. Chronic diastolic congestive heart failure, heart failure with preserved ejection fract ion: A. Echocardiogram 04/10/18 showing Mild left atrial dilatation. Normal left rosalba tricular size with a moderate to severe concentric left ventricular hypertrophy. Left ventri cular systolic function is preserved. LVEF is 60-65%. Mildly thickened and calcified mitral valve with a trace mitral valve regurgitation, nevd-im-nfddftmr mitral annular calcification , mildly thickened and calcified trileaflet aortic valve with adequate opening. There is aor tic valve sclerosis without significant aortic valve stenosis. There is a trace aortic valve insufficiency, mild tricuspid valve regurgitation, mild pulmonary hypertension with a peak systolic pressure of 45-50 mmHg. Pacemaker lead in right ventricle. Dilated IVC with a maddi l collapse suggesting mild fluid retention. When compared to echocardiography on 02/19/15, con centric left ventricular hypertrophy seems worsen. B. Today, 04/10/2018, his echocardiogram is reviewed with him. He is euvolemic. There are n o signs or symptoms of overt congestive heart failure, and his physical exam shows no signif icant fluid retention. He is in class II of the [place] Heart Association functional class . 5. Hypertension, essential. A. Today, 04/10/2018, his blood pressure is well controlled. 4. Dyslipidemia: A. Today, 04/10/2018, he remains on rosuvastatin 10 mg. He is due fo r fasting lipid panel in May. 5. GI bleed with anemia 08/2014. Not otherwise addressed today 04/10/2018. 6. Hypothyroidism. Not otherwise addressed today 04/10/2018. 7. Diabetes, type II- uncomplicated, controlled. Not otherwise addressed today 04/10/2018. 8. Hypoxemia: Not otherwise addressed today 04/10/2018. A. This appears to be secondary to his congestive heart failure p rimarily. He continues to need oxygen nocturnally due to this. He is consistent with using nocturnal oxygen by nasal canula at 2 liters per minute. PLAN: 1. He is given lab slip to take to [facility] in May to have fasting lipid panel, CMP and CBC. He will be called or sent a letter with results. 2. He will continue with his Quarterly CareLink remote device monitoring. 3. He will follow up in 1 year for office visit and device interrogation, or sooner with co ncersilver. Nola Brock MA-R, am acting as a scribe on behalf of, and in the presence of ABDIEL Porter. - MELODIE Hartley 04/10/2018 15:21 I, ABDIEL Porter, personally performed the services described in this documentation, as scribed in my presence and it is both accurate and complete. ABDIEL Quevedo 2017 15:36 Portions of this chart may have been created with [employer] voice recognition software. Occasi onal wrong-word or sound-alike substitutions may have occurred due to the inherent powell itations of voice recognition software. Please read the chart carefully and recognize, using context, where these substitutions have occurred. in this encounter Plan of Treatment +--------+---------+ + + + | Date | Type | Specialty | Care Team | Description | +--------+---------+ + + + | 04/11/ | Office | Cardiology | Sima Holder, | | | 2018 | Visit | | ABDIEL [address] | | | | | | [place], [place] | | | | | | [phone] | | | | | | | | +--------+---------+ + + + + +--------+ + + | Name | Priori | Associated Diagnoses | Order Schedule | | | ty | | | + +--------+ + + | Device Interrogation | Routin | Sick sinus | 10 Occurrences | | | e | syndrome (HCC) with | starting 04/10/2018 | | | | symptomatic | until 04/10/2019, 1 | | | | bradycardia Dual | completed | | | | Lead Medtronic | | | | | Advisa MRI capable | | | | | pacemaker 06/09/14 | | | | | [place] Pacemaker | | | | | reprogramming/check | | | | | DO NOT DELETE | | + +--------+ + + | Lipid Panel | Routin | Coronary artery | Expected: 04/10/2018 | | | e | disease involving | (Approximate), | | | | prairie band coronary | Expires: 04/10/2019 | | | | artery of prairie band | | | | | heart without angina | | | | | pectoris Sick | | | | | sinus syndrome (HCC) | | | | | with symptomatic | | | | | bradycardia | | | | | Paroxysmal atrial | | | | | fibrillation (HCC) | | | | | Chronic diastolic | | | | | CHF (congestive | | | | | heart failure) (HCC) | | | | | Hypertension, | | | | | essential | | | | | Dyslipidemia Dual | | | | | Lead Medtronic | | | | | Advisa MRI capable | | | | | pacemaker 06/09/14 | | | | | [place] Pacemaker | | | | | reprogramming/check | | | | | DO NOT DELETE | | + +--------+ + + | Comprehensive Metabolic Panel | Routin | Coronary artery | Expected: 04/10/2018 | | | e | disease involving | (Approximate), | | | | prairie band coronary | Expires: 04/10/2019 | | | | artery of prairie band | | | | | heart without angina | | | | | pectoris Sick | | | | | sinus syndrome (HCC) | | | | | with symptomatic | | | | | bradycardia | | | | | Paroxysmal atrial | | | | | fibrillation (HCC) | | | | | Chronic diastolic | | | | | CHF (congestive | | | | | heart failure) (HCC) | | | | | Hypertension, | | | | | essential | | | | | Dyslipidemia Dual | | | | | Lead Medtronic | | | | | Advisa MRI capable | | | | | pacemaker 06/09/14 | | | | | [place] Pacemaker | | | | | reprogramming/check | | | | | DO NOT DELETE | | + +--------+ + + | CBC no Differential | Routin | Coronary artery | Expected: 04/10/2018 | | | e | disease involving | (Approximate), | | | | prairie band coronary | Expires: 04/10/2019 | | | | artery of prairie band | | | | | heart without angina | | | | | pectoris Sick | | | | | sinus syndrome (HCC) | | | | | with symptomatic | | | | | bradycardia | | | | | Paroxysmal atrial | | | | | fibrillation (HCC) | | | | | Chronic diastolic | | | | | CHF (congestive | | | | | heart failure) (HCC) | | | | | Hypertension, | | | | | essential | | | | | Dyslipidemia Dual | | | | | Lead Medtronic | | | | | Advisa MRI capable | | | | | pacemaker 06/09/14 | | | | | [place] Pacemaker | | | | | reprogramming/check | | | | | DO NOT DELETE | | + +--------+ + + as of this encounter Procedures + +--------+ + + + | Procedure Name | Priori | Date/Time | Associated Diagnosis | Comments | | | ty | | | | + +--------+ + + + | ECG 12 LEAD | Routin | 04/10/2018 | Coronary artery | Results for this | | | e | 1507 PDT | disease involving | procedure are in the | | | | | prairie band coronary | results section. | | | | | artery of prairie band | | | | | | heart without angina | | | | | | pectoris | | + +--------+ + + + | DEVICE INTERROGATION | Routin | 04/10/2018 | Sick sinus | Results for this | | | e | 0000 PDT | syndrome (HCC) with | procedure are in the | | | | | symptomatic | results section. | | | | | bradycardia Dual | | | | | | Lead Medtronic | | | | | | Advisa MRI capable | | | | | | pacemaker 06/09/14 | | | | | | [place] Pacemaker | | | | | | reprogramming/check | | | | | | DO NOT DELETE | | + +--------+ + + + in this encounter Results ECG 12 lead (04/10/2018 1507) + + + + + | Component | Value | Ref Range | Performed At | + + + + + | VENTRICULAR RATE EKG | 63 | BPM | [facility] | + + + + + | ATRIAL RATE | 340 | BPM | [facility] | + + + + + | QRS DURATION | 170 | ms | [facility] | + + + + + | Q-T INTERVAL | 488 | ms | [facility] | + + + + + | Q-T INTERVAL | 499 | ms | [facility] | | (CORRECTED) | | | | + + + + + | QRS AXIS | -11 | degrees | [facility] | + + + + + | T AXIS | 160 | degrees | [facility] | + + + + + | INTERPRETATION TEXT | Ventricular-paced rhythm | | [facility] | | | ,a fibAbnormal ECGWhen | | | | | compared with ECG of | | | | | -JUN-2017 | | | | | 13:29,Previous ECG has | | | | | undetermined rhythm, | | | | | needs reviewConfirmed by | | | | | GABINO FLORES, MAKENNA | | | | | ([id number]) on 04/10/2018 | | | | | 4:56:58 PM | | | + + + + + + + + | Narrative | Performed At | + + + | | | + + + + +---------+ + + | Performing | Address | City/State/Zipcode | Phone Number | | Organization | | | | + +---------+ + + | [facility] | | | | + +---------+ + + Device Interrogation (04/10/2018) + + + | Narrative | Performed At | + + + | Sima Holder, | [facility] | | RN RELIEF CHARGE 04/10/2018 16:01 PATIENT NAME: Jourdan Solis | | | [place] : 1930: AGE: 87 y.o. Device | | | In-office Evaluation Report 04/10/2018 Reason for evaluation: | | | routineIndication for device: ICD-10-CM ICD-9-CM 1. 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 Coronary | | | artery disease involving prairie band coronary artery of prairie band heart | | | without angina pectoris I25.10 414.01 ECG 12 lead Lipid Panel | | | Comprehensive Metabolic Panel CBC no Differential 3. | | | Paroxysmal atrial fibrillation (HCC) I48.0 427.31 Lipid Panel | | | Comprehensive Metabolic Panel CBC no Differential 4. Chronic | | | diastolic CHF (congestive heart failure) ([facility]) I50.32 428.32 Lipid | | | Panel 428.0 Comprehensive Metabolic Panel CBC no Differential | | | 5. Hypertension, essential I10 401.9 Lipid Panel Comprehensive | | | Metabolic Panel CBC no Differential 6. Dyslipidemia E78.5 272.4 | | | Lipid Panel Comprehensive Metabolic Panel CBC no | | | Differential 7. Dual Lead Medtronic Advisa MRI capable pacemaker | | | 06[facility]09/14 [facility] Z[facility]0 V45.01 Device Interrogation Device | | | Interrogation Lipid Panel Comprehensive Metabolic Panel | | | CBC no Differential 8. Pacemaker reprogramming/check DO NOT DELETE | | | Z45.018 V53.31 Device Interrogation Device Interrogation | | | Lipid Panel Comprehensive Metabolic Panel CBC no | | | Differential Patient was seated and device was interrogated (with | | | programming changes made). Test was performed and interpreted by | | | me. Device parameters, battery status, percentages pacing and | | | significant arrhythmias were reviewed. Heart rate histograms were | | | assessed for adequate heart rate response and any alerts reviewed. | | | Appropriate lead impedance testing was performed. Pacing impedances | | | were reviewed for any significant changes. Sensing tests were | | | performed by decreasing LRL. Adequacy of pacing thresholds were tested | | | by increasing LRL for each lead and recorded for loss of capture. | | | Final outputs were assessed for adequate safety margins. Summary of | | | findings:Events: 2 AT/AF episodes accounting for 64%. Current episode | | | on going since 11/05/17 showing atrial flutter with paced ventricular | | | response.Heart rate histogram shows good distribution. Atrial pacing | | | 35.6 %, Ventricular pacing 68.3 %.There is a normal and stable device | | | function.Estimated remaining battery longevity is 3.5 years.Current | | | underlying rhythm: atrial flutter with ventricular rate 36 beats per | | | minute.Please see the scanned [facility] report and device PDF for | | | further details. | | | Comprehensive Metabolic Panel | | | CBC no Differential | | |8. Pacemaker reprogramming/check DO NOT DELETE Z45.018 V53.31 | | |Device Interrogation | | | Device Interrogation | | | Lipid Panel | | | Comprehensive Metabolic Panel | | | CBC no Differential | | | | | | | | |Patient was seated and device was interrogated (with programming | | |changes made). Test was performed and interpreted by me. Device | | |parameters, battery status, percentages pacing and significant | | |arrhythmias were reviewed. Heart rate histograms were assessed | | |for adequate heart rate response and any alerts reviewed. | | |Appropriate lead impedance testing was performed. Pacing | | |impedances were reviewed for any significant changes. Sensing | | |tests were performed by decreasing LRL. Adequacy of pacing | | |thresholds were tested by increasing LRL for each lead and | | |recorded for loss of capture. Final outputs were assessed for | | |adequate safety margins. | | | | | |Summary of findings: | | |Events: 2 AT/AF episodes accounting for 64%. Current episode on | | |going since 11/05/17 showing atrial flutter with paced ventricular | | |response. | | |Heart rate histogram shows good distribution. Atrial pacing 35.6 | | |%, Ventricular pacing 68.3 %. | | |There is a normal and stable device function. | | |Estimated remaining battery longevity is 3.5 years. | | |Current underlying rhythm: atrial flutter with ventricular rate | | |36 beats per minute. | | |Please see the scanned [facility] report and device PDF for further | | |details. | | + + + + + | Procedure Note | + + | Sima Holder ARNP - 04/10/2018 1500 PDT Formatting of this note may be different | | from the original.PATIENT NAME: Jourdan Reid : 1930: AGE: 87 | | y.o.Device In-office Evaluation Report04/10/2018 Reason for evaluation: routineIndication | | for device: ICD-10-CM ICD-9-CM 1. Sick sinus syndrome (HCC) with symptomatic | | bradycardia I49.5 427.81 Device Interrogation Device Interrogation Lipid Panel | | Comprehensive Metabolic Panel CBC no Differential 2. Coronary artery disease | | involving prairie band coronary artery of prairie band heart without angina pectoris I25.10 414.01 | | ECG 12 lead Lipid Panel Comprehensive Metabolic Panel CBC no Differential 3. | | Paroxysmal atrial fibrillation (HCC) I48.0 427.31 Lipid Panel Comprehensive Metabolic | | Panel CBC no Differential 4. Chronic diastolic CHF (congestive heart failure) (HCC) | | I50.32 428.32 Lipid Panel 428.0 Comprehensive Metabolic Panel CBC no Differential | | 5. Hypertension, essential I10 401.9 Lipid Panel Comprehensive Metabolic Panel CBC | | no Differential 6. Dyslipidemia E78.5 272.4 Lipid Panel Comprehensive Metabolic | | Panel CBC no Differential 7. Dual Lead Medtronic Advisa MRI capable pacemaker 06/09/14 | | [place] Z95.0 V45.01 Device Interrogation Device Interrogation Lipid Panel | | Comprehensive Metabolic Panel CBC no Differential 8. Pacemaker reprogramming/check DO | | NOT DELETE Z45.018 V53.31 Device Interrogation Device Interrogation Lipid Panel | | Comprehensive Metabolic Panel CBC no Differential Patient was seated and device was | | interrogated (with programming changes made). Test was performed and interpreted by | | me. Device parameters, battery status, percentages pacing and significant arrhythmias | | were reviewed. Heart rate histograms were assessed for adequate heart rate response and | | any alerts reviewed. Appropriate lead impedance testing was performed. Pacing impedances | | were reviewed for any significant changes. Sensing tests were performed by decreasing | | LRL. Adequacy of pacing thresholds were tested by increasing LRL for each lead and | | recorded for loss of capture. Final outputs were assessed for adequate safety | | margins.Summary of findings:Events: 2 AT/AF episodes accounting for 64%. Current episode | | on going since 11/05/17 showing atrial flutter with paced ventricular response.Heart | | rate histogram shows good distribution. Atrial pacing 35.6 %, Ventricular pacing 68.3 | | %.There is a normal and stable device function.Estimated remaining battery longevity is | | 3.5 years.Current underlying rhythm: atrial flutter with ventricular rate 36 beats per | | minute.Please see the scanned [facility] report and device PDF for further details. | | CBC no Differential | |6. Dyslipidemia E78.5 272.4 Lipid Panel | | Comprehensive Metabolic Panel | | CBC no Differential | |7. Dual Lead Medtronic Advisa MRI capable pacemaker 06/09/14 [facility] Z95.0 V45.01 Device I nterrogation | | Device Interrogation | | Lipid Panel | | Comprehensive Metabolic Panel | | CBC no Differential | |8. Pacemaker reprogramming/check DO NOT DELETE Z45.018 V53.31 Device Interrogation | | Device Interrogation | | Lipid Panel | | Comprehensive Metabolic Panel | | CBC no Differential | | | | | |Patient was seated and device was interrogated (with programming changes made). Test was p erformed and interpreted by me. Device parameters, battery status, percentages pacing and si gnificant arrhythmias were | |reviewed. Heart rate histograms were assessed for adequate heart rate response and any aler ts reviewed. Appropriate lead impedance testing was performed. Pacing impedances were review ed for any significant changes. | |Sensing tests were performed by decreasing LRL. Adequacy of pacing thresholds were tested b y increasing LRL for each lead and recorded for loss of capture. Final outputs were assessed for adequate safety margins. | | | |Summary of findings: | |Events: 2 AT/AF episodes accounting for 64%. Current episode on going since 11/05/17 showing atrial flutter with paced ventricular response. | |Heart rate histogram shows good distribution. Atrial pacing 35.6 %, Ventricular pacing 68.3 %. | |There is a normal and stable device function. | |Estimated remaining battery longevity is 3.5 years. | |Current underlying rhythm: atrial flutter with ventricular rate 36 beats per minute. | |Please see the scanned [facility] report and device PDF for further details. 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
--- OUTSIDE RECORDS SUMMARY | ~2018-04-29 | XMS | Clinical Summary ---
Demographics + + + | Address | [address] | | | [place] [address] | + + + | Home Phone | | + + + | Preferred Language | Unknown | + + + | Marital Status | | + + + | Church Affiliation | Unknown | + + + | Race | Unknown | + + + | Ethnic Group | Unknown | + + + Author + + + | Author | [facility] | + + + | Organization | [facility] | + + + | Address | Unknown | + + + | Phone | Unavailable | + + + Support + + + + + | Name | Relationship | Address | Phone | + + + + + | Jourdan Mercado | ECON | [address] | | | | | [place] | | | | | [phone] | | + + + + + | Rhett Mercado | ECON | Unknown | | + + + + + Care Team Providers + +------+ + | Care Share Holder Name | Role | Phone | + +------+ + | Evelin Leyva PA-C | PP | | + +------+ + Allergies + + + + + + | Active Allergy | Reactions | Severity | Noted | Comments | | | | | Date | | + + + + + + | Cephalosporins | Nausea and Vomiting, | Medium | 09/30/19 | unknown reaction | | | Other (See | | 12 | | | | Comments) | | | | + + + + + + | Corticosteroids | Other (See Comments) | Medium | 09/30/19 | unknown | | | | | 12 | | + + + + + + | Metoprolol | Other (See Comments) | Medium | 09/30/19 | unknown | | | | | 12 | | + + + + + + | Ranitidine | Other (See Comments) | Medium | 09/30/19 | unknown | | | | | 12 | | + + + + + + | Sulfa Antibiotics | Other (See Comments) | Medium | 09/30/19 | unknown | | | | | 12 | | + + + + + + Current Medications + + +-------+---------+------+------+-------+ | Prescription | Sig. | Disp. | Refills | Star | End | Statu | | | | | | t | Date | s | | | | | | Date | | | + + +-------+---------+------+------+-------+ | aspirin 81 MG | Take 81 mg by mouth | | | | | Activ | | tablet | daily. | | | | | e | + + +-------+---------+------+------+-------+ | diltiazem | Take 240 mg by mouth | | | | | Activ | | (CARDIZEM CD) 240 MG | daily. | | | | | e | | 24 hr capsule | | | | | | | + + +-------+---------+------+------+-------+ | liothyronine | Take 25 mcg by mouth | | | | | Activ | | (CYTOMEL) 25 MCG | daily. | | | | | e | | tablet | | | | | | | + + +-------+---------+------+------+-------+ | insulin lispro | Inject 30 Units into | | | | | Activ | | (HUMALOG) 100 | the skin 3 (three) | | | | | e | | UNIT/ML injection | times daily before | | | | | | | | meals. Sliding scale | | | | | | | | | | | | | | + + +-------+---------+------+------+-------+ | potassium chloride | Take 20 mEq by mouth | | | | | Activ | | (KLOR-CON) 10 MEQ | daily. | | | | | e | | CR tablet | | | | | | | + + +-------+---------+------+------+-------+ | levothyroxine | Take 100 mcg by | | | | | Activ | | (SYNTHROID, | mouth daily. | | | | | e | | LEVOTHROID) 100 MCG | | | | | | | | tablet | | | | | | | + + +-------+---------+------+------+-------+ | | Take 1 tablet by | | | | | Activ | | lisinopril-hydrochlo | mouth daily. | | | | | e | | rothiazide | | | | | | | | (PRINZIDE,ZESTORETIC | | | | | | | | ) 20-12.5 MG per | | | | | | | | tablet | | | | | | | + + +-------+---------+------+------+-------+ | metformin | Take 850 mg by mouth | | | | | Activ | | (GLUCOPHAGE) 850 MG | 3 (three) times | | | | | e | | tablet | daily. | | | | | | + + +-------+---------+------+------+-------+ | oxybutynin | Take 5 mg by mouth 2 | | | | | Activ | | (DITROPAN) 5 MG | (two) times daily. | | | | | e | | tablet | | | | | | | + + +-------+---------+------+------+-------+ | simvastatin | Take 40 mg by mouth | | | | | Activ | | (ZOCOR) 40 MG tablet | nightly. | | | | | e | + + +-------+---------+------+------+-------+ Active Problems Not on file Family History + + +------+ + | Medical History | Relation | Name | Comments | + + +------+ + | Heart disease | Brother | | | + + +------+ + | Diabetes type II | Mother | | | + + +------+ + + +------+ + + | Relation | Name | Status | Comments | + +------+ + + | Brother | | | | + +------+ + + | Mother | | | | + +------+ + + Social History + +-------+ +--------+------+ | Tobacco Use | Types | Packs/Day | Years | Date | | | | | Used | | + +-------+ +--------+------+ | Former Smoker | | | | | + +-------+ +--------+------+ + + +---------+ + | Alcohol Use | Drinks/We | oz/Week | Comments | | | ek | | | + + +---------+ + | Yes | | | rarely | + + +---------+ + + + + | Sex Assigned at | Date Recorded | | | | + + + | Not on file | | + + + Last Filed Vital Signs + + + + | Vital Sign | Reading | Time Taken | + + + + | Blood Pressure | 142/75 | 09/30/2011 9:30 PM PST | + + + + | Pulse | 82 | 09/30/2011 9:30 PM PST | + + + + | Temperature | 36.4 C (97.5 F) | 09/30/2011 9:30 PM PST | + + + + | Respiratory Rate | 18 | 09/30/2011 9:30 PM PST | + + + + | Oxygen Saturation | 96% | 09/30/2011 9:30 PM PST | + + + + | Inhaled Oxygen | - | - | | Concentration | | | + + + + | Weight | 67.1 kg (148 lb) | 09/30/2011 12:31 PM PST | + + + + | Height | 175.3 cm (5' 9") | 09/30/2011 12:31 PM PST | + + + + | Body Mass Index | 21.86 | 09/30/2011 12:31 PM PST | + + + + Plan of Treatment Not on file Results Not on filefrom Last 3 Months Insurance + +--------+ +------+-------+ + | Payer | Benefi | Subscriber | Type | Phone | Address | | | t Plan | ID | | | | | | / | | | | | | | Group | | | | | + +--------+ +------+-------+ + | MEDICARE | MEDICA | [id number] | | | [address] | | | RE | | | | [place] [phone] | | | IP-OP | | | | | + +--------+ +------+-------+ + | [employer] | ODS - | [id number] | | | | | | GENERI | | | | | | | C | | | | | + +--------+ +------+-------+ + + +--------+ +--------+ + + | Guarantor Name | Accoun | Relation to | Date | Phone | Billing Address | | | t Type | Patient | of | | | | | | | | | | + +--------+ +--------+ + + | JOURDAN MERCADO | Person [birth year] Self [birth year] Home: | [address] | | | al/Fam | | 1931 | [phone] [place] | | | [place] | | | [phone] | [phone] | + +--------+ +--------+ + +
--- OUTSIDE RECORDS SUMMARY | ~2018-04-29 | XMS | Clinical Summary ---
Demographics + + + | Address | [address] | | | [place] [address] | + + + | Home Phone | | + + + | Preferred Language | Unknown | + + + | Marital Status | | + + + | Mandaeism Affiliation | 1041 | + + + | Race | Unknown | + + + | Ethnic Group | Unknown | + + + Author + + + | Author | [facility] | | | and [place] | + + + | Organization | [facility] | | | and [place] | + + + | Address | Unknown | + + + | Phone | Unavailable | + + + Support + + + + + | Name | Relationship | Address | Phone | + + + + + | Inga Mercado | ECON | [address] | | | | | [place] | | | | | [address] | | + + + + + | Marisol Albarado | ECON | Unknown | | + + + + + Care Team Providers + +------+ + | Care Svp Monetization Name | Role | Phone | + +------+ + | Kadeem Talavera MD | PP | | + +------+ + Allergies + + + + + + | Active Allergy | Reactions | Severity | Noted | Comments | | | | | Date | | + + + + + + | Cephalosporins | Other (See Comments) | | 05/26/20 | Patient doesn't | | | | | 14 | recall | + + + + + + | Prednisone | Other (See Comments) | | 05/26/20 | Patient doesn't | | | | | 14 | recall | + + + + + + | Ranitidine Hcl | Other (See Comments) | | 05/26/20 | Patient doesn't | | | | | 14 | recall | + + + + + + | Sulfamethoxazole | Other (See Comments) | | 05/26/20 | Patient doesn't | | W/Trimethoprim | | | 14 | recall | | (Co-Trimoxazole) | | | | | + + + + + + Current Medications + + +--------+---------+------+------+-------+ | Prescription | Sig. | Disp. | Refills | Star | End | Statu | | | | | | t | Date | s | | | | | | Date | | | + + +--------+---------+------+------+-------+ | Blood Glucose | by Does not apply | | | | | Activ | | Monitoring Suppl | route 3 times daily. | | | | | e | | (SELWYN NOE 2 | | | | | | | | SYSTEM) | | | | | | | + + +--------+---------+------+------+-------+ | folic acid 1 mg | Take 1 mg by mouth | | | | | Activ | | tablet | Daily. | | | | | e | + + +--------+---------+------+------+-------+ | sitagliptin | Take 50 mg by mouth | | | | | Activ | | (JANUVIA) 50 MG | Daily. | | | | | e | | tablet | | | | | | | + + +--------+---------+------+------+-------+ | Multiple | Take by mouth | | | | | Activ | | Vitamins-Minerals | Daily. | | | | | e | | ([facility] | | | | | | | | PO) | | | | | | | + + +--------+---------+------+------+-------+ | magnesium oxide | Take 400 mg by mouth | | | | | Activ | | (MAG-OX) 400 mg | 2 times daily. | | | | | e | | tablet | | | | | | | + + +--------+---------+------+------+-------+ | nitroglycerin | Place 0.4 mg under | | | | | Activ | | (NITROSTAT) 0.3 mg | the tongue every 5 | | | | | e | | SL tablet | minutes as needed. | | | | | | + + +--------+---------+------+------+-------+ | oxybutynin | Take 5 mg by mouth 2 | | | | | Activ | | (DITROPAN XL) 5 mg | times daily. | | | | | e | | 24 hr tablet | | | | | | | + + +--------+---------+------+------+-------+ | [place]-3 Fatty | Take by mouth | | | | | Activ | | Acids (PRO NUTRIENTS | Daily. | | | | | e | | OMEGA 3) 332.5 MG | | | | | | | | CPDR | | | | | | | + + +--------+---------+------+------+-------+ | insulin lispro | Per sliding scale | | 0 | 05/19 | | Activ | | (HUMALOG KWIKPEN) | per Dr. Moore: 3 | | | 03/07 | | e | | 100 units/mL | units before | | | 14 | | | | injection pen | breakfast and dinner | | | | | | | | + sliding scale | | | | | | | | with a maximum of 15 | | | | | | | | units per day. | | | | | | + + +--------+---------+------+------+-------+ | insulin glargine | Inject 30 Units | | | / | | Activ | | (LANTUS) 100 | under the skin | | | 6/20 | | e | | units/mL injection | Daily. Pharmacy | | | 14 | | | | | reported. | | | | | | + + +--------+---------+------+------+-------+ | acetaminophen | Take 1-2 tablets by | | | 09/2 | | Activ | | (TYLENOL) 325 mg | mouth every 6 hours | | | 3/20 | | e | | tablet | as needed for Pain. | | | 14 | | | + + +--------+---------+------+------+-------+ | Cholecalciferol | Take 2,000 Units by | | | | | Activ | | (VITAMIN D3) 2000 | mouth Daily. | | | | | e | | UNITS CAPS | | | | | | | + + +--------+---------+------+------+-------+ | Cinnamon 500 MG | Take 1,000 mg by | | | | | Activ | | CAPS | mouth Daily. | | | | | e | + + +--------+---------+------+------+-------+ | PROAIR HFA 108 (90 | Take 2 puffs by | | | 10/2 | | Activ | | BASE) MCG/ACT | mouth as needed. | | | 11/07 | | e | | inhaler | | | | 14 | | | + + +--------+---------+------+------+-------+ | triamcinolone | Apply as directed | | | 07/19 | | Activ | | (KENALOG) 0.1% cream | | | | 020 | | e | | | | | | 14 | | | + + +--------+---------+------+------+-------+ | levothyroxine | Take 125 mcg by | | 3 | 09/18 | | Activ | | (SYNTHROID, | mouth Daily. | | | 10/07 | | e | | LEVOTHROID) 125 mcg | | | | 16 | | | | tablet | | | | | | | + + +--------+---------+------+------+-------+ | JOYCE NOE 2 | | | 3 | 04/2 | | Activ | | TEST DISK | | | | 6/20 | | e | | | | | | 16 | | | + + +--------+---------+------+------+-------+ | ferrous sulfate | Take 325 mg by mouth | | | | | Activ | | 325 mg tablet | daily (with | | | | | e | | | breakfast). | | | | | | + + +--------+---------+------+------+-------+ | isosorbide | Take 1 tablet by | 120 | 5 | 12/0 | | Activ | | dinitrate (ISORDIL) | mouth Daily as | tablet | | 2/20 | | e | | 30 MG tablet | needed. For SBP > | | | 16 | | | | | 200 mmHg | | | | | | + + +--------+---------+------+------+-------+ | rosuvastatin | Take 1 tablet by | 30 | 5 | 02/2 | | Activ | | (CRESTOR) 10 mg | mouth nightly. | tablet | | 8/20 | | e | | tablet | | | | 17 | | | + + +--------+---------+------+------+-------+ | furosemide (LASIX) | Take 1 tablet by | | | 10/1 | | Activ | | 20 mg tablet | mouth Daily. | | | 06/07 | | e | | | | | | 17 | | | + + +--------+---------+------+------+-------+ | potassium chloride | Take 1 tablet by | | | 10/1 | | Activ | | (KLOR-CON) 10 mEq | mouth Daily. | | | 9/20 | | e | | CR tablet | | | | 17 | | | + + +--------+---------+------+------+-------+ | metoprolol | TAKE ONE TABLET BY | 180 | 2 | 03/2 | | Activ | | tartrate (LOPRESSOR) | MOUTH TWICE DAILY | tablet | | 0/20 | | e | | 100 mg tablet | | | | 18 | | | + + +--------+---------+------+------+-------+ | | Take two tablets by | 180 | 1 | 04/1 | | Activ | | lisinopril-hydrochlo | mouth every day | tablet | | 8/20 | | e | | rothiazide | | | | 18 | | | | (PRINZIDE,ZESTORETIC | | | | | | | | ) 20-12.5 MG per | | | | | | | | tablet | | | | | | | + + +--------+---------+------+------+-------+ | ELIQUIS 2.5 MG | Take one tablet by | 60 | 5 | 06/0 | | Activ | | tablet | mouth twice daily | tablet | | 5/20 | | e | | | | | | 18 | | | + + +--------+---------+------+------+-------+ | NOVOLOG FLEXPEN | Sliding scale | | | 06/1 | | Activ | | 100 UNIT/ML | | | | 1/20 | | e | | injection pen | | | | 18 | | | + + +--------+---------+------+------+-------+ Active Problems + + + | Problem | Noted Date | + + + | Chronic diastolic CHF (congestive heart failure) (HCC) | 12/27/2016 | + + + | Dyslipidemia | 06/24/2016 | + + + | Pacemaker reprogramming/check DO NOT DELETE | 07/16/2015 | + + + | Coronary artery disease involving [place] coronary artery of | 10/08/2014 | | [place] heart without angina pectoris | | + + + + + | Overview: Ehocardiogram 04/10/18 showing Mild left atrial | | dilatation. Normal left ventricular size with a moderate to | | severe concentric left ventricular hypertrophy. Left ventricular | | systolic function is preserved. LVEF is 60-65%. Mildly thickened | | and calcified mitral valve with a trace mitral valve | | regurgitation, ymeb-ne-treyioox mitral annular calcification, | | mildly thickened and calcified trileaflet aortic valve with | | adequate opening. There is aortic valve sclerosis without | | significant aortic valve stenosis. There is a trace aortic valve | | insufficiency, mild tricuspid valve regurgitation, mild pulmonary | | hypertension with a peak systolic pressure of 45-50 mmHg. | | Pacemaker lead in right ventricle. Dilated IVC with a normal | | collapse suggesting mild fluid retention. When compared to | | echocardiography on 02/19/15, concentric left ventricular | | hypertrophy seems worsen. Left heart catheterization 10/02/14 | | shows mild to moderate coronary artery disease with mild diffuse | | disease of LAD, mild diffuse disease of left circumflex, moderate | | diffuse plaquing at the proximal and midportion of the RCA, | | normal left ventricular systolic function with LVEF 60%. Risk | | factor modification recommended. Last Assessment & Plan: - | | Nonobstructive disease seen in September- Continue statin, | | meoprolol, nitro PRN, apixaban | + + + + + | Hypertension, essential | 06/10/2014 | + + + + + | Last Assessment & Plan: - Difficult to control despite | | lisinopril, metoprolol, nitro PRN | + + + + + | Dual Lead Brian CONTEH capable pacemaker 06/09/14 | 06/09/2014 | | Gabino | | + + + + + | Overview: Formatting of this note may be different from the | | original. MODEL NAME MODEL# SERIAL# DATE IMPLANTED GENERATOR | | Brian Patel [id number] 06/09/14 RV | | LEAD Medtronic Capsurefix Novus 4076 52 cm [id number] 06/09/14 A | | LEAD Medtronic Capsurefix Novus 4076 45cm [id number] 06/09/14 | + + + + + | SOB (shortness of breath) | 05/12/2014 | + + + | Paroxysmal atrial fibrillation (HCC) | | + + + + + | Overview: Echocardiogram 02/19/15 Top normal left atrial | | size. Normal left ventricular size with mild concentric left | | ventricular hypertrophy. Left ventricular systolic and is low | | normal. LVEF is 50-55%. Mildly thickened and calcified | | trileaflet aortic valve with adequate opening. There is a mild | | aortic valve insufficiency. Mildly thickened and calcified | | mitral valve with a trace mitral valve regurgitation. Mild | | mitral annular calcification, mild tricuspid valve regurgitation, | | mild pulmonary hypertension with a peak systolic pressure of | | 45-50 mmHg. Normal IVC with less than 50% respiratory | | collapse.Echocardiogram, 05/13/2014 at [facility] ( Mario Adames | | MD Ty) shows left ventricle is normal in size, exhibiting | | normal systolic function, the patient is in sinus rhythm during | | the study on this date, he is quite hypertensive with a blood | | pressure of 197/82 before the test and 200/98 after the test, | | there is quite severe left ventricular hypertrophy with septal | | thickness up to 16 mm, posterior wall thickness about 13 mm, the | | single beat biplane ejection fraction was 54%, there is a wall | | motion abnormality in the mid interventricular septum, consistent | | with either a small area of ischemic abnormality or perhaps left | | bundle branch block, which the patient is known to have, | | diastolic function is profoundly abnormal with an early diastolic | | myocardial relaxation velocity of only 3 cm per second and an | | E:E prime ratio of 22 and diastolic dominant pulmonary venous | | flow, these findings are essentialyy diagnostic of elevated mean | | left heart filling pressures,Right ventricle is normal size, | | normal function, right ventricular wall thickness is upper limits | | of normal, the left atrium is markedly enlarged, the left atrial | | volume is 50-51 mL/m2; it was previously 44 mL/m2, probably | | representing a slight increase in right and left atrial size, | | Aortic valve, trileaflet thickened, consistent with aortic valve | | sclerosis, trivial regurgitation, ascending aortic | | atherosclerosis, Mitral valve, there is thickening of the | | anterior mitral valve leaflet and mild regurgitation, tricuspid | | valve is structurally normal, trivial regurgitation and the | | tricuspid gradient 28 mmHg, but a questionable signal for | | estimation of pulmonary artery pressures, there is at least mild | | pulmonary valvular regurgitation and the inferior vena cava is | | dilated with decreased respiratory responsiveness. Last | | Assessment & Plan: - Continue metoprolol and apixaban | + + + +---+ | Sick sinus syndrome (HCC) with symptomatic bradycardia | | + +---+ + + | Overview: Status post Medtronic dual-chamber permanent | | pacemaker implantation 06/09/14. | + + + +---+ | Fatigue | | + +---+ | Diabetes (HCC) | | + +---+ + + | Last Assessment & Plan: - Continue insulin glargine at lower | | dose in hospital- PRN sliding scale | |- PRN sliding scale | + + + +---+ | Cancer (HCC) | | + +---+ | LBBB (left bundle branch block) | | + +---+ | Chest pain | | + +---+ + + | Overview: Nuclear Stress test 09/26/13 Persantine EKG is | | nondiagnostic due to the abnormal underlying EKG. Abormal | | Persantine Sestamibi myocardial perfusion study with a | | medium-sized, reversible defect of a moderate severity in the | | proximal inferior, mid inferior, distal inferior and apex. This | | suggests a medium-sized myocardial ischemia of a right coronary | | territories.Normal left ventricular size and wall thickness. | | Preserved left ventricular systolic function. LVEF by gated SPECT | | 57 %.Stress test 05/15/13, shows the attenuated corrected and | | non-corrected images at stress and rest both demonstrate slight | | diminution of radiotracer in the anteroseptal wall, with no | | fill-in of radiotracer at rest, indicating a tiny area of | | infarct, the transient cavity dilatation score is normal, the | | ejection fraction was not obtained due to a dysrhythmia, the | | bull's eye image shows normal muscle thickening. Last Assessment | | & Plan: - Has some features of angina, although not consistent | | chest pain with exertion- BP control seems to be worsened | | recently, which may have led to some ischemia- Check troponins | | ane telemetry overnight, give nitro as needed for chest pain- | | Discuss with Dr. Lloyd in AM | + + Encounters +--------+ + + + + | Date | Type | Specialty | Care Team | Description | +--------+ + + + + | 04/10/ | Office | | Nehal Holder, | Sick sinus syndrome | | 2018 | Visit | | RECONCILIATION CLERK | ([facility]) with | | | | | | symptomatic | | | | | | bradycardia (Primary | | | | | | Dx); Coronary | | | | | | artery disease | | | | | | involving [place] | | | | | | coronary artery of | | | | | | [place] heart without | | | | | | angina pectoris; | | | | | | Paroxysmal atrial | | | | | | fibrillation ([facility]); | | | | | | Chronic diastolic | | | | | | CHF (congestive | | | | | | heart failure) | | | | | | ([facility]); Hypertension, | | | | | | [...] DELETE | +--------+ + + + + | 04/10/ | Hospital | | Nehal Holder, | Sick sinus syndrome | | 2017 | Encounter | | ABDIEL Hammond, | ([facility]) with | | | | | Chelsie Zhou, | symptomatic | | | | | Technologist | bradycardia; | | | | | | Coronary artery | | | | | | disease involving | | | | | | [place] coronary | | | | | | artery of [place] | | | | | | heart without angina | | | | | | pectoris; | | | | | | Paroxysmal atrial | | | | | | fibrillation ([facility]); | | | | | | Hypertension, | | | | | | essential; Chronic | | | | | | diastolic CHF | | | | | | (congestive heart | | | | | | failure) ([facility]); | | | | | | Dyslipidemia; Dual | | | | | | Lead Medtronic | | | | | | Advisa MRI capable | | | | | | pacemaker 06/09/14 | | | | | | [place]; Pacemaker | | | | | | reprogramming/check | | | | | | DO NOT DELETE | +--------+ + + + + | 02/20/ | Refill | | Nehal Holder, | Medication Refill | | 2017 | | | RECONCILIATION CLERK | | +--------+ + + + + from Last 3 Months Family History + +------+ + + | Relation | Name | Status | Comments | + +------+ + + | Brother | | | | + +------+ + + | Brother | | | | + +------+ + + | Father | | | | + +------+ + + | Mother | | | | + +------+ + + | Sister | | | | + +------+ + + Social History + + + [...] + + + + | Temperature | 35.6 C (96.1 F) | 06/11/2015 1156 PDT | + + + + | Respiratory Rate | 12 | 04/10/20181451 PDT | + + + + | Oxygen Saturation | 95% | 06/11/2015 1300 PDT | + + + + | Inhaled Oxygen | - | - | | Concentration | | | + + + + | Weight | 76.2 kg (167 lb 15.9 | 04/10/20181451 PDT | | | oz) | | + + + + | Height | 172.7 cm (5' 8") | 04/10/20181451 PDT | + + + + | Body Mass Index | 25.54 | 04/10/20181451 PDT | + + + + Plan of Treatment +--------+---------+ + + + | Date | Type | Specialty | Care Team | Description | +--------+---------+ + + + | 04/11/ | Office | | Nehal Holder, | | | 2018 | Visit | | ABDIEL [address] | | | | | | [address] [place], [place] | | | | | | [address] | | | | | | | | +--------+---------+ + + + + + + + + | Health Maintenance | Due Date | Last Done | Comments | + + + + + | Diabetic Eye Exam | | | | | (Bi-Annually) | 7 | | | + + + + + | Diabetic Foot Exam | | | | | | 7 | | | + + + + + | Vaccine: | | | | | Dtap/Tdap/Td (1 - | 8 | | | | Tdap) | | | | + + + + + | Vaccine: | | | | | Pneumococcal 65+ | 4 | | | | High/Highest Risk (1 | | | | | of 2 - PCV13) | | | | + + + + + | Hemoglobin A1c Q3 | | 06/28/2016, 10/12/2015, | | | Months | 7 | 07/17/2014 | | + + + + + | Vaccine: Influenza | | | | | (#1) | 8 | | | + + + + + Implants + +------+--------+ +--------+--------+--------+ | Implanted | Type | Area | Manufacture | Device | Expira | Model | | | | | r | | tion | / | | | | | | Identi | Date | Serial | | | | | | fier | | / Lot | + +------+--------+ +--------+--------+--------+ | Lead Atr/Vent Biplr 5.7fr | | Left: | MEDTRONIC - | | 04/04/ | 4076-5 | | 52cm - [id number]: | | Chest | MEDT | | 2015 | 2 | | Qty: 1 on 06/09/2014 by | | | | | | /[id number] | | Makenna Lloyd MD | | | | | | [id number] | | | | | | | | / | + +------+--------+ +--------+--------+--------+ | Lead Atr/Vent Biplr 5.7fr | | Left: | MEDTRONIC - | | 10/23/ | 4076-4 | | 45cm - [id number]: | | Chest | MEDT | | 2016 | 5 | | Qty: 1 on 06/09/2014 by | | | | | | /[id number] | | Makenna Lloyd MD | | | | | | [id number] | | | | | | | | / | + +------+--------+ +--------+--------+--------+ | Advisa PacemakerImplanted: | | Left: | MEDTRONIC - | | 11/01/ | [id number] | | Qty: 1 on 06/09/2014 by | | Chest | MEDT | | 2016 | | | Makenna Lloyd MD | | | | | | /[id number] | | | | | | | | [id number] | | | | | | | | / | + +------+--------+ +--------+--------+--------+ Procedures + +--------+ + + + | [...] in the | | | | | [place] coronary | results section. | | | | | artery of [place] | | | | | | heart [...] involving | | | | | | [place] coronary | | | | | | artery of [place] | | | | | | heart without angina | | | | | | pectoris | | | | | | Paroxysmal atrial | | | | | | fibrillation ([facility]) | | | | | | Hypertension, | | | | | | essential Chronic | | | | | | diastolic CHF | | | | | | (congestive heart | | | | | | failure) ([facility]) | | | | | | Dyslipidemia [...] 06/09/14 | | | | | | Gabino Pacemaker | | | | | | reprogramming/check | | | | | | DO NOT DELETE | | + +--------+ + + + from Last 3 Months Results ECG 12 lead (04/10/2018 1507) + [...] Q-T INTERVAL | 488 | ms | [facility] | + + + + + | Q-T INTERVAL | 499 | ms | [facility] | | (CORRECTED) | | | | + + + + + | QRS AXIS | -11 | degrees | [facility] | + [...] FLORES, MAKENNA | | | | | ([id number]) on 04/10/2018 | | | | | [...] | | | + +---------+ + + ECHO Complete (04/10/2018 1417) + +-------+ + [...] | Echocardiography Report (TTE) Demographics Patient Name [facility] | | | [facility] Room Number ANAM Patient | | | Number [id number] Date of Study | | | 04/10/2018 Visit Number [id number] | | | Referring Physician | | | ANNETTE NEHAL Number Date of | | | 1930 Director Of Photography MARY | | | BLANCA CHELSIE Age 87 | | | year(s) Interpreting MAKENNA | | | GABINO | | | Law Office Manager Gender | | | Male Nurse | | | 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 | | | Hlss-xz-zrjkwaug mitral annular calcification.5. Mildly thickened and | [...] 2.08 cm PW Diastolic: 1.53 cm EF Vpoohecvx61% EF | | | Calculated: 56.46% Miscellaneous [...] Diastolic: 1.53 cm | | | EF Cxwohslyy36% | | | EF Calculated: 56.46% | [...] Demographics | | | | Patient Name [facility] Room Number | | ANAM | | | | Patient Number [id number] Date of Study 04/10/2018 | | | | Visit Number [id number] | | | | Referring Physician ANNETTE CALVERT | | Number | | | | Date of 1930 Director Of Photography MARY HOLGUIN | | | | Age 87 year(s) Interpreting MAKENNA LLOYD, | | Law Office Manager | | | | Gender Male Nurse | | | | Stress Specimen Processor | | | | Procedure | | [...] valve | | regurgitation. | | 4. Soat-ay-chasqgfs mitral annular calcification. | | 5. Mildly [...] | | | Electronically signed by MAKENNA LLOYD MD(Interpreting physician) on | | 04/10/2018 03:07 [...] PW Diastolic: 1.53 cm | | EF Whqvtwpui46% | | EF Calculated: 56.46% | | [...] Performed At | + + + | Nehal Holder, | [facility] | | RECONCILIATION CLERK 04/10/2018 16:01 PATIENT NAME: Marry Solis | | | Hall[place] : 1930: [...] Coronary | | | artery disease involving [place] coronary artery of [place] heart | | | without angina pectoris I25.10 414.01 ECG 12 lead Lipid Panel | | | Comprehensive Metabolic Panel CBC no Differential 3. | | | Paroxysmal atrial fibrillation (HCC) I48.0 427.31 Lipid Panel | | | Comprehensive Metabolic Panel CBC no Differential 4. Chronic | | | diastolic CHF (congestive heart failure) ([facility]) I50.32 428.32 Lipid | | [...] MRI capable pacemaker | | | 06/09/14 [facility] Z95.0 V45.01 Device Interrogation Device | | [...] | Procedure Note | + + | Nehal Holder ARNP - 04/10/2018 1500 PDT Formatting of this note may be different | | from the original.PATIENT NAME: Marry Mercado : 1930: AGE: 87 | | y.o.Device In-office Evaluation Report04/10/2018 Reason for evaluation: routineIndication | | for device: ICD-10-CM ICD-9-CM 1. Sick sinus syndrome (HCC) with symptomatic | | bradycardia I49.5 427.81 Device Interrogation Device Interrogation Lipid Panel | | Comprehensive Metabolic Panel CBC no Differential 2. Coronary artery disease | | involving [place] coronary artery of [place] heart without angina pectoris I25.10 414.01 | [...] Advisa MRI capable pac[facility]/09/14 | [facility] Interrogation Device Interrogation Lipid [...] Lead Medtronic Advisa MRI capable [facility]09[facility] V45.01 Device I nterrogation | | [...] | | | + +---------+ + + from Last 3 Months Insurance + +--------+ +--------+ + + | Payer | Benefi | Subscriber | Type | Phone | Address | | | t Plan | ID | | | | | | / | | | | | | | Group | | | | | + +--------+ +--------+ + + | MEDICARE | MEDICA | [id number] | Medica | [phone]- | | | | RE | | re | [phone] | | | | PART A | | | | | | | AND B | | | | | + +--------+ +--------+ + + | MODA | MODA | [id number] | Indemn | [phone] | [address] [address] | | | HEALTH | | ity | [phone] | [place] [address] | | | MDCR | | | | | | | SUPPL | | | | | + +--------+ +--------+ + + + +--------+ +--------+ + + | Guarantor Name | Accoun | Relation to | Date | Phone | Billing Address | | | t Type | Patient | of | | | | | | | | | | + +--------+ +--------+ + + | MARRY MERCADO | Person | Self [birth year] Home: | [address] | | | [place] | | 1931 | [phone] [place] | | | [place] | | | [phone] | [phone] | + +--------+ +--------+ + +
[~2018-04-29 10:25] MED LIST changes: +BREEZE 21 EACH MISC; +ELIQUIS2.5 MG PO; +KLOR-CON 1010 MEQ PO; +LASIX20 MG PO; +METOPROLOL TAR100 MG PO; +NITROSTAT0.4 MG SL; +ROSUVASTATIN CA10 MG PO
[2018-04-29] MEDS ORDERED: FEOSOL325 MG PO (10:48)
[2018-04-29] MEDS ORDERED: JANUVIA100 MG PO (10:49)
[2018-04-29] MEDS ORDERED: OXYBUTYNIN CHLOR5 MG PO (10:50)
== END 2018-04-29 10:59 | disposition home or self-care (01) ==
LOC: ED 10:25
DX: S30.813A Abrasion of scrotum and testes, initial encounter (principal); I10 Essential (primary) hypertension; E11.9 Type 2 diabetes mellitus without complications; E03.9 Hypothyroidism, unspecified; Z88.8 Allergy status to other drugs, medicaments and biological substances; Z88.1 Allergy status to other antibiotic agents; Z79.4 Long term (current) use of insulin; Z79.899 Other long term (current) drug therapy; X58.XXXA Exposure to other specified factors, initial encounter
CPT/HCPCS: 99283